=== PATIENT | female | born 1975 | race Caucasian/White ===

== ENCOUNTER 2023-07-08 15:57 | Emergency (ER) | payer SELFPAY ==
[2023-07-08] MEDS ORDERED: KETOROLAC INJ 15 MG/ML VIAL IVP ONE (16:30)
[2023-07-08] MEDS ORDERED: NS IV 1000 ML 1,000 ML IV SCH (16:30)
--- NOTE | 2023-07-08 16:34 | ED General ---
General Chief Complaint: Glucose Problems Stated Complaint: HBP, BOTH LEGS HURT, DIABETES ISSUES Nursing Triage Note: Patient c/o bilat. leg pain x 4 days and states she is a Diabetic. Patient states she has not checked her BS x 1mth and denies taking her prescribed DM medication. Patient c/o elevated blood pressure, but is unable to state what her blood pressure has been. Patient states she has had elevated blood pressure for years and denies being on any blood pressure medication. Patient denies any chest pain. Patient states her pain is a cramping pain. Patient rates her bilat. leg pain 06/08. Source of Information: Patient Exam Limitations: No Limitations History of Present Illness Date Seen by Provider: Jul 08, 2023 Time Seen by Provider: 16:09 Initial Comments 47-year-old female presents to the ER for medical clearance. Patient was screened by [facility] for suicidal ideation. Patient reports that her plan is to overdose on her meds, cut herself, or jump out in front of traffic. [facility] staff member who screened patient is here with her. The screener states that patient has intent to commit suicide and they would like to place her, but brought her here for medical clearance due to patient having reports of high blood pressure and bilateral leg pain. Patient states that she has had elevated blood pressure for a long time, but has never been prescribed medications for it. Systolic in the 140s here. Patient also has a history of diabetes and states that her blood sugars have been elevated and she has not been taking her diabetes medications for a month. Patient complains of bilateral lower extremity pain. States that the pain is worse with walking, goes away with rest, but patient also has pain with palpation of both lower extremities. No swelling noted to lower extremities, no skin discoloration, pulses intact, cap refill less than 2 seconds. She denies fever, chest pain, shortness of air, abdominal pain, nausea, vomiting, diarrhea. Does report burning with urination as well. The screener states that patient was recently hospitalized for suicidal ideation, she was released less than a month ago. Patient is currently homeless and is couch surfing. Patient is unable to name all the medications that she takes, and we have no records of the medications that she takes. She did list metformin, Seroquel, and trazodone. She also states that she takes a daily injection for her diabetes, but is uncertain if it is insulin. Allergies and Home Medications Allergies Coded Allergies: Penicillins (Verified Allergy, Mild, hives, 07/08/23) Patient Home Medication List Home Medication List Reviewed: Yes Review of Systems Review of Systems Constitutional: see HPI Past Odcaodd-Knwwrk-Eojqkq Hx Patient Social History Tobacco Use?: Yes Tobacco type used: Cigarettes Smoking Status: Current Everyday Smoker Use of E-Cig and/or Vaping dev: No Substance use?: No Alcohol Use?: No Pt feels they are or have been: No Immunizations Up To Date Influenza Vaccine Up-to-Date: No; Not Current Past Medical History Surgery/Hospitalization HX: DM, hypertension Last Menstrual Period: Jul 02, 2023 Physical Exam Vital Signs Vital Signs - First Documented 07/08/23 07/08/23 16:05 22:23 Temp 36.2 Pulse 96 Resp 18 B/P (MAP) 143/86 (105) Pulse Ox 98 O2 Delivery Room Air Capillary Refill : Height, Weight, BMI Height: '" Weight: lbs. oz. kg; BMI Method: General Appearance: No Apparent Distress, WD/WN Neck: Normal Inspection, Supple Respiratory: Lungs Clear, Normal Breath Sounds, No Accessory Muscle Use, No Respiratory Distress Cardiovascular: Regular Rate, Rhythm Extremity: Normal Capillary Refill, Normal Inspection, Normal Range of Motion, No Pedal Edema, Other (Bilateral lower extremity tenderness to palpation from calf to foot) Neurologic/Psychiatric: Alert, Normal Mood/Affect Skin: Normal Color, Warm/Dry Progress/Results/Core Measures Suspected Sepsis SIRS Temperature: Pulse: 96 Respiratory Rate: 18 Laboratory Tests 07/08/23 16:26: White Blood Count 9.2 Blood Pressure 143 /86 Mean: 105 Laboratory Tests 07/08/23 16:26: Creatinine 0.75, Platelet Count 327, Total Bilirubin 0.2 Results/Orders Lab Results Laboratory Tests Test 07/08/23 16:10 07/08/23 16:26 07/08/23 16:44 07/08/23 17:19 Range/Units Glucometer 312 H 70-110 MG/DL White Blood Count 9.2 4.3-11.0 10^3/uL Red Blood Count 4.05 3.80-5.11 10^6/uL Hemoglobin 10.5 L 11.5-16.0 g/dL Hematocrit 33 L 35-52 % Mean Corpuscular Volume 81 80-99 fL Mean Corpuscular Hemoglobin 26 25-34 pg Mean Corpuscular Hemoglobin Concent 32 32-36 g/dL Red Cell Distribution Width 15.1 H 10.0-14.5 % Platelet Count 327 130-400 10^3/uL Mean Platelet Volume 9.2 9.0-12.2 fL Immature Granulocyte % (Auto) 0 % Neutrophils (%) (Auto) 58 42-75 % Lymphocytes (%) (Auto) 36 12-44 % Monocytes (%) (Auto) 5 0-12 % Eosinophils (%) (Auto) 0 0-10 % Basophils (%) (Auto) 0 0-10 % Neutrophils # (Auto) 5.3 1.8-7.8 10^3/uL Lymphocytes # (Auto) 3.4 1.0-4.0 10^3/uL Monocytes # (Auto) 0.5 0.0-1.0 10^3/uL Eosinophils # (Auto) 0.0 0.0-0.3 10^3/uL Basophils # (Auto) 0.0 0.0-0.1 10^3/uL Immature Granulocyte # (Auto) 0.0 0.0-0.1 10^3/uL Sodium Level 134 L 135-145 MMOL/L Potassium Level 3.9 3.6-5.0 MMOL/L Chloride Level 97 L 98-107 MMOL/L Carbon Dioxide Level 28 21-32 MMOL/L Anion Gap 9 5-14 MMOL/L Blood Urea Nitrogen 12 7-18 MG/DL Creatinine 0.75 0.60-1.30 MG/DL Estimat Glomerular Filtration Rate 99 BUN/Creatinine Ratio 16 Glucose Level 317 H 70-105 MG/DL Calcium Level 9.5 8.5-10.1 MG/DL Corrected Calcium 9.3 8.5-10.1 MG/DL Total Bilirubin 0.2 0.1-1.0 MG/DL Aspartate Amino Transf (AST/SGOT) 19 5-34 U/L Alanine Aminotransferase (ALT/SGPT) 26 0-55 U/L Alkaline Phosphatase 83 40-136 U/L Total Protein 6.9 6.4-8.2 GM/DL Albumin 4.3 3.2-4.5 GM/DL Beta-Hydroxybutyrate (Chem panel) 0.25 0.00-0.27 MMOL/L Salicylates Level < 5.0 L 5.0-20.0 MG/DL Acetaminophen Level < 10 L 10-30 UG/ML Serum Alcohol < 10 <10 MG/DL Venous Blood pH 7.44 H 7.31-7.41 Venous Blood Partial Pressure CO2 43 40-52 MMHG Venous Blood HCO3 29 H 22-28 MMOL/L Urine Color YELLOW Urine Clarity CLEAR Urine pH 5.5 5-9 Urine Specific [place] 1.015 L 1.016-1.022 Urine Protein NEGATIVE NEGATIVE Urine Glucose (UA) 3+ H NEGATIVE Urine Ketones NEGATIVE NEGATIVE Urine Nitrite NEGATIVE NEGATIVE Urine Bilirubin NEGATIVE NEGATIVE Urine Urobilinogen 0.2 < = 1.0 MG/DL Urine Leukocyte Esterase NEGATIVE NEGATIVE Urine RBC (Auto) NEGATIVE NEGATIVE Urine RBC NONE /HPF Urine WBC RARE /HPF Urine Squamous Epithelial Cells 2-5 /HPF Urine Crystals NONE /LPF Urine Bacteria TRACE /HPF Urine Casts NONE /LPF Urine Mucus NEGATIVE /LPF Urine Culture Indicated NO Urine Test NEGATIVE NEGATIVE Urine Opiates Screen NEGATIVE NEGATIVE Urine Oxycodone Screen NEGATIVE NEGATIVE Urine Methadone Screen NEGATIVE NEGATIVE Urine Barbiturates Screen NEGATIVE NEGATIVE Ur Tricyclic Antidepressants Screen NEGATIVE NEGATIVE Urine Phencyclidine Screen NEGATIVE NEGATIVE Urine Amphetamines Screen NEGATIVE NEGATIVE Urine Methamphetamines Screen NEGATIVE NEGATIVE Urine Benzodiazepines Screen NEGATIVE NEGATIVE Urine Cocaine Screen NEGATIVE NEGATIVE Urine Cannabinoids Screen NEGATIVE NEGATIVE Test 07/08/23 17:40 Range/Units Glucometer 249 H 70-110 MG/DL My Orders Orders - TOÑO RANDHAWA ULTRASOUND SPEC Ua Culture If Indicated (07/08/23 16:17) Cbc And Automated Diff (07/08/23 16:17) Comprehensive Metabolic Panel (07/08/23 16:17) Alcohol (07/08/23 16:17) Drug Screen Stat (Urine) (07/08/23 16:17) Acetaminophen (07/08/23 16:17) Salicylate (07/08/23 16:17) Ekg Tracing (07/08/23 16:17) Hcg,Qualitative Urine (07/08/23 16:17) Ed Iv/Invasive Line Start (07/08/23 16:17) Monitor-Rhythm Ecg Trace Only (07/08/23 16:17) Venous Blood Gas (07/08/23 16:17) Beta Hydroxybutyrate (07/08/23 16:17) Ketorolac Injection (Ketorolac Injection (07/08/23 16:30) Ns Iv 1000 Ml (Ns Iv 1000 Ml) (07/08/23 16:30) Bh Status Checks/Observation O Q15M (07/08/23 17:40) Medically Cleared Psych Txfr (07/08/23 19:16) Iv Push Medical Microbiologist Ed (07/08/23 ) Medications Given in ED Vital Signs/I&O 07/08/23 07/08/23 07/09/23 16:05 22:23 05:38 Temp 36.2 Pulse 96 72 55 Resp 18 16 B/P (MAP) 143/86 (105) 134/74 (94) 131/72 Pulse Ox 98 96 O2 Delivery Room Air Room Air 07/09/23 00:00 Intake Total 1000 ml Balance 1000 ml Capillary Refill : Blood Pressure Mean: 105 Point of Care Testing Finger Stick Blood Glucose: 312 Blood Glucose Action Taken: RN notified Progress Note : Progress Note Patient seen and evaluated, resting comfortably in bed, no acute distress. Based on exam and symptoms, work-up initiated included CBC, CMP, salicylate level, Tylenol level, alcohol level, urine drug screen, urinalysis, venous blood gas, beta hydroxybutyrate, phosphorus level, EKG, hCG. I considered a D-dimer or ultrasound of bilateral lower extremities, but deferred due to no risk factors for DVT. Patient's Wells score for DVT is 0. Patient's lower legs from calves to feet are tender to palpation, the tenderness is not localized to the deep venous system. This pain could be from claudication because patient reports pain is worse with walking, and improves with rest, but also could just be musculoskeletal since patient has significant tenderness with palpation of entire lower legs. 1748 Labs reviewed. CBC shows mild anemia, hemoglobin 10.5, hematocrit 33. CMP shows slightly decreased sodium 134, chloride slightly decreased 97. Glucose elevated 317. Hydroxybutyrate normal. VBGs shows elevated pH 7.44. Patient negative for salicylates, Tylenol, alcohol, drugs. Urinalysis shows 3+ glucose, negative for infection. Urine negative. Patient is medically cleared. 1907 patient is excepted at [facility] by Dr. Wall. Will call for transport. 1999 we do not have transport tonight. [facility] will hold the bed for patient. Transport will be here at 5 or 6 AM tomorrow morning. ECG Initial ECG Impression Date: Jul 08, 2023 Initial ECG Impression Time: 16:30 Initial ECG Rate: 75 Initial ECG Rhythm: Normal Sinus Initial ECG Intervals: Normal Initial ECG Impression: Nonspecific Changes Initial ECG Comparisson: No Previous ECG Available Departure Impression Primary Impression: Suicidal ideation Additional Impressions: Hyperglycemia Leg pain, bilateral Disposition: 65 XFER TO PSYCH HOSP/UNIT Condition: Stable Transfer [facility] Medically Cleared for Xfer: Yes Transfer Reason: Exceeds level of care Time Spoke to Accepting Phy: 19:[address] Davidson, psychiatry, accepted patient for transfer Transfer Time: 19:16 Transfer Facility: [facility] Method of Transfer: Private Vehicle (Secured car) Departure-Patient Inst. Referrals: NO,LOCAL PHYSICIAN (PCP/Family) Primary Care Physician TOÑO RANDHAWA APRN Jul 08, 2023 16:34
[2023-07-08 16:35] LABS: BASOPHILS % (AUTO) 0 % (0-10); EOSINOPHILS % (AUTO) 0 % (0-10); HEMATOCRIT 33 % (35-52); HEMOGLOBIN 10.5 g/dL (11.5-16.0); LYMPHOCYTES # (AUTO) 3.4 10^3/uL (1.0-4.0); LYMPHOCYTES % (AUTO) 36 % (12-44); MEAN CORPUSCULAR HEMOGLOBIN 26 pg (25-34); MEAN CORPUSCULAR HGB CONC 32 g/dL (32-36); MEAN CORPUSCULAR VOLUME 81 fL (80-99); MEAN PLATELET VOLUME 9.2 fL (9.0-12.2); MONOCYTES # (AUTO) 0.5 10^3/uL (0.0-1.0); MONOCYTES % (AUTO) 5 % (0-12); NEUTROPHILS # (AUTO) 5.3 10^3/uL (1.8-7.8); NEUTROPHILS % (AUTO) 58 % (42-75); PLATELET COUNT 327 10^3/uL (130-400); WHITE BLOOD COUNT 9.2 10^3/uL (4.3-11.0)
[2023-07-08 16:46] LABS: ALBUMIN 4.3 GM/DL (3.2-4.5); CHLORIDE 97 MMOL/L (98-107); POTASSIUM 3.9 MMOL/L (3.6-5.0); SODIUM 134 MMOL/L (135-145)
[2023-07-08 16:47] LABS: CALCIUM 9.5 MG/DL (8.5-10.1)
[2023-07-08 16:49] LABS: GLUCOSE 317 MG/DL (70-105); TOTAL PROTEIN 6.9 GM/DL (6.4-8.2)
[2023-07-08 16:50] LABS: BILIRUBIN,TOTAL 0.2 MG/DL (0.1-1.0); CARBON DIOXIDE 28 MMOL/L (21-32)
[2023-07-08 16:52] LABS: ALKALINE PHOSPHATASE 83 U/L (40-136); CREATININE SERUM 0.75 MG/DL (0.60-1.30); GFR ESTIMATED 99
[2023-07-08 16:54] LABS: ACETAMINOPHEN < 10 UG/ML (10-30); BUN/CREATININE RATIO 16
[2023-07-08 16:55] LABS: ALANINE AMINOTRANSFERASE 26 U/L (0-55); SALICYLATE < 5.0 MG/DL (5.0-20.0)
[2023-07-08 17:27] LABS: HCG,QUALITATIVE URINE NEGATIVE (NEGATIVE)
[2023-07-08 17:38] LABS: CLARITY,URINE CLEAR; COLOR,URINE YELLOW
[2023-07-08 17:39] LABS: BACTERIA,URINE TRACE /HPF; BILIRUBIN,URINE NEGATIVE (NEGATIVE); GLUCOSE, URINE (UA) 3+ (NEGATIVE); KETONES,URINE NEGATIVE (NEGATIVE); LEUKOCYTE ESTERASE ,URINE NEGATIVE (NEGATIVE); NITRITE,URINE NEGATIVE (NEGATIVE); PH,URINE 5.5 (5-9); PROTEIN,URINE NEGATIVE (NEGATIVE); WBC,URINE RARE /HPF
[2023-07-08 17:45] LABS: AMPHETAMINE SCREEN, URINE NEGATIVE (NEGATIVE); BARBITURATE SCREEN URINE NEGATIVE (NEGATIVE); CANNABINOID SCREEN, URINE NEGATIVE (NEGATIVE); COCAINE SCREEN URINE NEGATIVE (NEGATIVE); METHADONE STAT NEGATIVE (NEGATIVE); OPIATE SCREEN URINE NEGATIVE (NEGATIVE); OXYCODONE STAT NEGATIVE (NEGATIVE); TRICYCLIC ANTIDEPRESSANTS SCRE NEGATIVE (NEGATIVE)
[2023-07-09 05:38] VITALS: BP 131/72
== END 2023-07-09 05:40 ==
LOC: ER 16:01
DX: M79.605 Pain in left leg (principal); M79.604 Pain in right leg; E11.65 Type 2 diabetes mellitus with hyperglycemia; F17.210 Nicotine dependence, cigarettes, uncomplicated
CPT/HCPCS: 80053; 80306; 81000; 82010; 82805; 82947; 84703; 85025; 93005; 96361; 96374; 99284; G0480 ×3; 36415; 80320; 80329